=== PATIENT | female | born 1985 | race Caucasian/White ===

== ENCOUNTER 2017-02-07 14:30 | Inpatient (IN) | payer SELFPAY ==
[~2017-02-07] VITALS: Ht 167.6 cm; Wt 48.5 kg
--- NOTE | ~2017-02-07 | DS ---
Unit #: [id number] #: [id number] Patient: TRISTIAN LANDRY [id number] [facility] [address] [place] [address] [id number] MR#: [id number] NAME: TRISTIAN LANDRY ROOM: [facility] Age: 31 Sex: F Admission Date: 02/07/2017 : 1985 Discharge Date: 02/10/2017 Attending Physician: Mario Woodward M.D. Primary Care Physician: Generic Doctor Not In System DISCHARGE SUMMARY REASON FOR ADMISSION The patient is a 31-year-old white female admitted to the [address] [place] [address] unit for increasing depression. HOSPITAL COURSE The patient is continued on previously prescribed medications including lithium and Lamictal. She was begun on a trial of Seroquel 25 mg twice daily and 50 mg a day. She tolerate the medication well and reported improvement in mood and reduction in suicidal ideation. She requested discharge on 02/10 and it was so ordered. FINAL DIAGNOSES Bipolar disorder most recent episode depressed. GERD. DISPOSITION ON DISCHARGE The patient is discharged on the following medication: 1. Lamictal 150 mg at bedtime for mood stabilization. 2. Protonix 40 mg daily for GERD. 3. Eskalith CR 900 mg at bedtime for mood stabilization. 4. Seroquel 25 mg twice daily, 50 mg at h.s. for bipolar depression. No dietary or physical restrictions were placed at the patient at the time of discharge. Followup to take place through the auspices of community mental health resources in the [place], [place] area. The patient's prognosis is considered fair. Dictated by... Mario Woodward M.D. CB/dev TD: 02/10/2017 22:01 JOB #: [id number] Unit #: [id number] #: [id number] Patient: TRISTIAN LANDRY DISCHARGE SUMMARY Page 1 of 1 X Mario Woodward MD X DISCHARGE SUMMARY
--- NOTE | ~2017-02-07 | HP ---
Unit #: [id number] #: [id number] Patient: MEENA LANDRY [id number] [place] [address] [id number] MR#: [id number] NAME: MEENA LANDRY ROOM: 13 Age: 31 Sex: F Admission Date: 02/07/2017 : 1985 Attending Physician: Mario Woodward M.D. Admitting Physician: Mario Woodward M.D. Primary Care Physician: Generic Doctor Not In System HISTORY AND PHYSICAL HISTORY OF PRESENT ILLNESS Meena is a 31 year old admitted to [address] [place] [address] because of her bipolar disorder. She has been noncompliant with her medications. PAST MEDICAL HISTORY Nothing significant. PAST SURGICAL HISTORY Nothing reported. ALLERGIES Morphine, codeine. SOCIAL HISTORY Smokes 1 pack per day. Drinks alcohol on occasion. Admits to using marijuana, cocaine on occasion and has a history of IV methamphetamine use. FAMILY HISTORY Medically noncontributory. REVIEW OF SYSTEMS She does not answer questions appropriately. There are no reports of nausea, vomiting or diarrhea. She has had no cough or increased temperature. CURRENT MEDICATIONS 1. Eskalith CR 900 mg q.h.s. 2. Protonix 40 mg daily. 3. Milk of Magnesia p.r.n. 4. Maalox p.r.n. 5. Tylenol p.r.n. 6. Lamictal 150 mg daily. PHYSICAL EXAMINATION GENERAL: Alert, well-nourished, in no apparent distress. VITAL SIGNS: Blood pressure 110/74, heart rate 80, respirations 16, temperature 98.6. WEIGHT: 107. HEIGHT: 5 feet 6 inches. SKIN: Warm and dry without rash or lesion. HEENT: Normocephalic. TMs not viewed. Oral and nasal passages clear. Conjunctivae clear. PERRLA. EOMs intact. NECK: Supple without lymphadenopathy or thyromegaly. Unit #: [id number] #: [id number] Patient: MEENA LANDRY HEART: Regular rate and rhythm without murmur. LUNGS: Clear. ABDOMEN: Soft, nontender. : Not done. EXTREMITIES: No evidence of cyanosis, clubbing or edema. Moves all without focal deficit. NEUROLOGICAL: Unable to complete extended exam. She does move all extremities without focal deficit. Hand director of accreditation is equal and gait is normal. IMPRESSION Psychiatric admission. RECOMMENDATIONS PSYCHIATRIC: Per psychiatrist. MEDICAL: See no contraindication to participate in facility's activities. MEDICAL PROGNOSIS Good. MEDICAL CONDITION Stable. Dictated by... Jessica Blake P.A.-C. for Rashid Jacobs/emory TD: 02/08/2017 18:09 JOB #: [id number] HISTORY AND PHYSICAL Page 1 of 1 X Jessica Blake X HISTORY AND PHYSICAL
--- NOTE | ~2017-02-07 | PN ---
Unit #: [id number] #: [id number] Patient: TRISTIAN LANDRY [id number] [facility] [address] [place] [address] [id number] MR#: [id number] NAME: TRISTIAN LANDRY ROOM: [facility] Age: 31 Sex: F Admission Date: 02/07/2017 : 1985 Attending Physician: Mario Woodward M.D. Admitting Physician: Mario Woodward M.D. Primary Care Physician: Jonathon Doctor Not In System [facility] PROGRESS NOTES DATE 02/09/2017 DISCUSSION The patient complains of increased anxiety when seen today. We will begin a trial of low dose Seroquel in hopes of addressing these symptoms. It will be given both on an as needed basis at a dose of 25 mg for anxiety and 50 mg at bedtime for mood stabilization. Dictated by... Mario Woodward M.D. CB/emory TD: 02/09/2017 11:59 JOB #: [id number] [facility] PROGRESS NOTES Page 1 of 1 X Mario Woodward MD PROGRESS NOTE
--- NOTE | ~2017-02-07 | PA ---
Unit #: [id number] #: [id number] Patient: TRISTIAN LANDRY [id number] [facility] [address] [place] [address] [id number] MR#: [id number] NAME: TRISTIAN LANDRY ROOM: P252 Age: 31 Sex: F Admission Date: 02/07/2017 : 1985 Date of Assessment: 02/08/2017 Attending Physician: Mario Woodward M.D. Admitting Physician: Mario Woodward M.D. Primary Care Physician: Generic Doctor Not In System PSYCHIATRIC ASSESSMENT IDENTIFYING INFORMATION The patient is a 31-year-old white female admitted reporting a recent manic episode. INFORMANT(S) Patient. RELIABILITY Fair. CHIEF COMPLAINT "I think I had a manic episode." HISTORY OF PRESENT ILLNESS The patient is a 31-year-old white female admitted in transfer from [place] where she had then presented in a depressed phase of bipolar disorder. The patient reports that she had recent 14 day period of hypomania about which she is "hearing bad things." She is followed by psychiatrist in [place] and is currently prescribed lithium and Lexapro. She reports that she has remained compliant with those medications. When seen today, the patient reports ongoing sad mad, some recent change in sleep. She is denying current suicidal or homicidal ideation. PAST PSYCHIATRIC HISTORY The patient has a history of 2 previous psychiatric hospitalizations. One at [facility] in [place] and one at [facility] in [place]. FAMILY HISTORY Not obtained. SOCIAL HISTORY The patient lives with her fiance and child. She states that she has difficulty maintaining employment. She reports no use of psychoactive substances. MEDICATION HISTORY 1. Clonazepam. 2. Lamotrigine. 3. Pavo. 4. Omeprazole. ALLERGIES Unit #: [id number] #: [id number] Patient: TRISTIAN LANDRY Codeine, morphine. MENTAL STATUS EXAM At this time, reveals the patient to be a very thin white female appearing her stated age. She is in no apparent physical distress at time of examination. She is awake, alert, oriented in all spheres. His mood is dysphoric. Her affect constricted. Speech is generally relevant and coherent. There are no gross deficits in memory or cognition noted. Intelligence is judged to be in the average range based on fund of knowledge. The patient is cooperative throughout the interview. She denies current suicidal/homicidal ideation or psychotic features. Judgement and insight appear to be intact. ASSETS AND LIABILITIES Patient's assets, motivation for change. Liabilities, lack or resources. DIAGNOSTIC IMPRESSION 1. Bipolar disorder, depressed phase. 2. GERD. PSYCHIATRIC PLAN/TREATMENT GOALS The patient remains hospitalized for safety and stabilization. We will restart previously prescribed medications. The patient will participate in appropriate springer and milieu activities and will be transferred to the more appropriate milieu of the [address] [place] [address]. ESTIMATED LENGTH OF STAY Three to five days. Dictated by... Mraio Woodward M.D. KATE/emory TD: 02/09/2017 11:41 JOB #: [id number] PSYCHIATRIC ASSESSMENT Page 1 of 1 X Mario Woodward MD X PSYCHIATRIC ASSESSMENT
--- NOTE | ~2017-02-07 | A ---
[facility] Nutrition Therapy DATE: 02/08/17 Patient: TRISTIAN LANDRY Physician: ONESIMO Address: [address] [facility] Room/Bed: [address], Zip: [place] [address] Admit Date: 02/07/17 Date of : [birth year] Height: 5 6 Weight: [phone] NUTRITIONAL ASSESSMENT: REASON: PT SEEN FOR LOW BMI (17) ADMITTED FOR DEPRESSION AND SI PMH: BIPOLAR Anthropometrics: PT IS 31 YO FEMALE. HT 5'6", WT 106LBS, BMI 17. IBW 130, 81%IBW Labs: NONE AVAILABLE Meds: PROTONIX Assessment: PT LIVES WITH FAMILY. PT REPORTS AUDITORY COMMAND HALLUCINATIONS AND VISUAL HALLUCINATIONS. PT SMOKES 1PPD AND USES METH AND MARIJUANA. PT IS ON REGULAR DIET. PER ADMISSION SCREEN, PT HAS LOST 30LBS X MONTHS AND HAS HAD POOR APPETITE. PT WAS VISITED TWICE, BUT OUT OF ROOM BOTH TIMES. PO INTAKE IS NOT AVAILABLE YET. Dx: UNDERWEIGHT R/T CURRENT CONDITION AEB REPORT OF 30LBS WEIGHT LOSS X MONTHS, POOR APPETITE, BMI 17. Intervention: REGULAR DIET, PSYCH, MEDS PER MD Monitoring, Evaluation and Goals: 1. WEIGH REGULARLY 2. ADEQUATE PO INTAKE >50-75% OF MEALS 3. PREVENT FURTHER WEIGHT LOSS AND PROMOTE WEIGHT GAIN TO HEALTHY BMI MONITOR: WEIGHTS, PO INTAKE Recommendations: 1. RD WILL ADD LARGE ENTREES TO DIET ORDER 2. ENCOURAGE ADEQUATE PO INTAKE AT MEALS 3. WEIGH REGULARLY 4. IF PO INTAKE IS <50% OF MEALS, PLEASE ORDER ENSURE BID RD WILL FOLLOW UP PER PROTOCOL AND PRN. PT IS AT MILD NUTRITION RISK. Respectfully, LEANN ROJAS RD, LD [facility] Nutrition Therapy DATE: 02/08/17 Patient: TRISTIAN LANDRY Physician: ONESIMO Address: [address] [facility] Room/Bed: [address], Zip: [place] [address] Admit Date: 02/07/17 Date of : [birth year] Height: 5 6 Weight: [phone] [facility] cc: client file
[2017-02-08 09:37] LABS: BASOPHIL# 0.1 X10e3 (0-0.3); BASOPHIL% 0.6 % (0-2.5); EOSINOPHIL# 0.4 X10e3 (0-0.7); EOSINOPHIL% 3.7 % (0.0-7.0); HEMATOCRIT 46.5 % (35.0-45.0); HEMOGLOBIN 15.7 gm/dL (12.0-16.0); LYMPHOCYTE# 1.7 X10e3 (1.0-3.5); LYMPHOCYTE% 16.3 % (17.0-45.0); MEAN CELL VOLUME 88.6 FL (83-96); MEAN CORPUSCULAR HEMOGLOBIN 29.9 PG (28-34); MEAN CORPUSCULAR HGB CONC 33.7 g/dL (30-36); MEAN PLATELET VOLUME 9.9 FL (6.5-11.5); MONOCYTE# 0.7 X10e3 (0-1.0); MONOCYTE% 6.9 % (3.0-12.0); NEUTROPHIL# 7.6 X10e3 (1.5-7.1); NEUTROPHIL% 72.5 % (40-75); PLATELET COUNT 259 X10e3 (140-420); RED BLOOD COUNT 5.25 X10e (3.90-5.30); RED CELL DISTRIBUTION WIDTH 13.5 % (11.0-15.5); WHITE BLOOD COUNT 10.5 X10e3 (4.0-10.5)
[2017-02-08 09:49] LABS: DIFF IND NO
[2017-02-08 10:16] LABS: ALBUMIN SERUM 5.2 g/dL (3.5-5.0); BILIRUBIN,TOTAL 1.3 mg/dL (0.2-2.0); CALCIUM SERUM 10.2 mg/dL (8.4-10.2); CREATININE SERUM 0.8 mg/dL (0.6-1.4); POTASSIUM 4.2 mmol/L (3.5-5.1); PROTEIN TOTAL SERUM 8.2 g/dL (6.0-8.3)
[2017-02-08 13:13] LABS: AMPHETAMINE POS (NEG); BARBITURATES NEG (NEG); BENZODIAZEPINES POS (NEG); COCAINE NEG (NEG); MARIJUANA NEG (NEG); OPIATES NEG (NEG); TRICYCLIC ANTIDEPRESSANTS NEG (NEG); U METHADONE NEG (NEG)
[2017-02-08 13:14] LABS: URINE APPEARANCE CLOUDY; URINE BILIRUBIN NEG (NEG); URINE BLOOD 2+ (NEG); URINE COLOR YELLOW; URINE GLUCOSE NEG (NEG); URINE KETONE NEG (NEG); URINE LEUKOCYTE ESTERASE 3+ (NEG); URINE NITRATE NEG (NEG); URINE PROTEIN NEG (NEG); URINE SPECIFIC GRAVITY 1.019 (1.003-1.035)
[2017-02-08 13:17] LABS: URINE BACTERIA AUWI 3+ (NEGATIVE); URINE SQUAMOUS EPITHELIAL CELL OCC /[HPF]; UWBCS1 AUWI 200-300 (0-5)
== END 2017-02-10 12:40 | disposition home or self-care (01) | DRG 885 ==
LOC: P1S 18:21 → P2L 02-09 10:29
PROVIDERS: Specialist
DX: F31.9 Bipolar disorder, unspecified (principal); F17.200 Nicotine dependence, unspecified, uncomplicated; K21.9 Gastro-esophageal reflux disease without esophagitis
CPT/HCPCS: 80053; 80178; 80307; 81003; 84703; 85025